=== PATIENT | female | born 1985 | race Caucasian/White ===

== ENCOUNTER 2018-07-04 11:57 | Emergency (ER) | payer OTHER ==
[~2018-07-04] VITALS: Ht 172.7 cm; Wt 108.9 kg
[~2018-07-04 11:57] MED LIST: CIPR500 PO; IBUP600 PO; IBUP800 PO; PROM25 PO
[2018-07-04] MEDS ORDERED: DIPH50 PO (12:36)
[2018-07-04] MEDS ORDERED: CETI5 PO (13:11)
[2018-07-04] MEDS ORDERED: ALBU90OI INH (13:11)
== END 2018-07-04 13:29 | disposition home or self-care (01) ==
LOC: ER 11:57
DX: L50.9 Urticaria, unspecified (principal); R06.2 Wheezing; F17.200 Nicotine dependence, unspecified, uncomplicated
CPT/HCPCS: 96372; 99282; J3301

== ENCOUNTER 2018-07-19 14:44 | Emergency (ER) | payer OTHER ==
[~2018-07-19] VITALS: Ht 172.7 cm; Wt 104.3 kg
[~2018-07-19 14:44] MED LIST changes: +ALBU90OI INH; +CETI5 PO; +DIPH50 PO
[2018-07-19 16:12] LABS: BASOPHILS ABSOLUTE AUTO 0.07 K/mm3 (0.00-0.23); BASOPHILS PERCENT AUTO 1 % (0-2); EOSINOPHILS ABSOLUTE AUTO 0.33 K/mm3 (0.00-0.68); EOSINOPHILS PERCENT AUTO 3 % (0-6); Hematocrit 43.8 % (33.0-51.0); Hemoglobin 14.7 g/dL (11.5-16.0); IMMATURE GRAN ABSOLUTE AUTO 0.03 K/mm3 (0.00-0.10); IMMATURE GRAN PERCENT AUTO 0 % (0-1); LYMPHOCYTES ABSOLUTE AUTO 2.94 K/mm3 (0.84-5.20); LYMPHOCYTES PERCENT AUTO 25 % (21-46); MONOCYTES ABSOLUTE AUTO 0.89 K/mm3 (0.16-1.47); MONOCYTES PERCENT AUTO 8 % (4-13); Mean Corpuscular HGB 30.8 pg (26.0-34.0); Mean Corpuscular HGB Conc 33.6 g/dL (31.5-36.5); Mean Corpuscular Volume 92 fL (80-100); Mean Platelet Volume 9.2 fL (9.1-12.4); NEUTROPHILS ABSOLUTE AUTO 7.33 K/mm3 (1.96-9.15); NEUTROPHILS PERCENT AUTO 63 % (41-73); Platelet Count 430 K/mm3 (150-400); RDW Coefficient Variation 13.3 % (11.7-14.2); RDW Standard Deviation 45.3 fL (35.1-46.3); Red Blood Cell Count 4.78 M/mm3 (3.80-5.20); White Blood Cell Count 11.59 K/mm3 (4.00-11.30)
[2018-07-19 16:40] LABS: Alanine Aminotransfer (ALT/SGP 27 U/L (12-78); Albumin, Blood 4.1 g/dL (3.4-5.0); Albumin/Globulin Ratio 1.1 (0.8-1.8); Alk Phos 74 U/L (50-136); Anion Gap 8 mmol/L (6-16); Aspartate Aminotrans (AST/SGOT 17 U/L (12-37); Bilirubin, Total 0.9 mg/dL (0.1-1.0); Blood Urea Nitrogen 11 mg/dL (8-24); CO2, Blood 22 mmol/L (21-32); Calcium, Blood 8.8 mg/dL (8.5-10.1); Chloride, Blood 108 mmol/L (98-108); Creatinine, Blood 0.85 mg/dL (0.40-1.00); Globulin, Blood 3.9 g/dL (2.2-4.0); Glomerular Filtration Rate >60 (60-); Glucose, Blood 81 mg/dL (70-99); Potassium, Blood 4.1 mmol/L (3.5-5.5); Sodium, Blood 138 mmol/L (136-145)
[2018-07-19] MEDS ORDERED: Zithromax250 MG PO (17:01)
[2018-07-19] MEDS ORDERED: Prednisone20 MG PO (17:01)
== END 2018-07-19 17:12 | disposition home or self-care (01) ==
LOC: ER 14:44
PROVIDERS: Physician Assistant
DX: J45.901 Unspecified asthma with (acute) exacerbation (principal); J18.9 Pneumonia, unspecified organism; F17.200 Nicotine dependence, unspecified, uncomplicated
CPT/HCPCS: 36415; 71046; 80053; 84443; 85025; 94640; 96374; 99284-25; J2930

== ENCOUNTER 2022-04-05 08:01 | Emergency (ER) | payer OTHER ==
[~2022-04-05] VITALS: Ht 172.7 cm; Wt 81.7 kg
[~2022-04-05 08:01] MED LIST changes: +Prednisone20 MG PO; +Zithromax250 MG PO
[2022-04-05] MEDS ORDERED: Amoxicillin500 MG PO (09:02)
== END 2022-04-05 09:11 | disposition home or self-care (01) ==
LOC: ER 08:01
DX: K04.7 Periapical abscess without sinus (principal); F17.200 Nicotine dependence, unspecified, uncomplicated; Z79.899 Other long term (current) drug therapy
CPT/HCPCS: 99282

== ENCOUNTER → 2022-12-22 | Outpatient (CLI) | payer OTHER ==
[~2022-12-22] MED LIST changes: +Amoxicillin500 MG PO
== END | disposition home or self-care (01) ==
LOC: LAB SHORT 15:43 → LAB 15:43
DX: O09.512 Supervision of elderly primigravida, second trimester (principal)
CPT/HCPCS: 87081; 87150

== ENCOUNTER 2023-01-05 05:25 | Inpatient (IN) | payer OTHER ==
[~2023-01-05] VITALS: Ht 172.7 cm; Wt 119.0 kg
[2023-01-05 06:24] LABS: BASOPHILS ABSOLUTE AUTO 0.08 K/mm3 (0.00-0.23); BASOPHILS PERCENT AUTO 1 % (0-2); EOSINOPHILS ABSOLUTE AUTO 0.11 K/mm3 (0.00-0.68); EOSINOPHILS PERCENT AUTO 1 % (0-6); Hematocrit 33.9 % (33.0-51.0); Hemoglobin 11.4 g/dL (11.5-16.0); IMMATURE GRAN ABSOLUTE AUTO 0.07 K/mm3 (0.00-0.10); IMMATURE GRAN PERCENT AUTO 1 % (0-1); LYMPHOCYTES ABSOLUTE AUTO 3.14 K/mm3 (0.84-5.20); LYMPHOCYTES PERCENT AUTO 22 % (21-46); MONOCYTES ABSOLUTE AUTO 0.91 K/mm3 (0.16-1.47); MONOCYTES PERCENT AUTO 6 % (4-13); Mean Corpuscular HGB 29.6 pg (26.0-34.0); Mean Corpuscular HGB Conc 33.6 g/dL (31.5-36.5); Mean Corpuscular Volume 88 fL (80-100); Mean Platelet Volume 10.1 fL (9.1-12.4); NEUTROPHILS PERCENT AUTO 70 % (41-73); Platelet Count 607 K/mm3 (150-400); RDW Coefficient Variation 13.5 % (11.7-14.2); RDW Standard Deviation 43.3 fL (35.1-46.3); Red Blood Cell Count 3.85 M/mm3 (3.80-5.20); White Blood Cell Count 14.41 K/mm3 (4.00-11.30)
[2023-01-05 08:43] LABS: PCO2 Cord - Arterial 47.1 mmHg (40-50); pH Cord - Arterial 7.25 (7.28-7.35)
[2023-01-05 08:46] LABS: PO2 Cord - Venous < 28 mmHg (28-32); pH Umbilical Cord - Venous 7.23 (7.26-7.35)
--- NOTE | 2023-01-05 11:24 | NUR ---
01/05/23 1124 Anaya Hensley MALE BORN AT 0804 VIA PRIMARY C/SECTION. CORD GASSES WERE ORDERED BY DR. MUNSON. CORD SEGMENT GIVEN TO RT TOÑO. APGARS WERE 4//9. BABY WENT TO [facility] FOR CPAP. WT WAS 9-5, 21 IN LONG. CORD BLOOD WAS COLLECTED AND THE SAMPLE WAS GIVEN TO LEIF HOFFMAN.
--- NOTE | 2023-01-05 13:00 | NUR ---
UP TO NURSERY TO SEE BABY VIA WHEELCHAIR
--- NOTE | 2023-01-05 14:34 | NUR ---
PT UP TO WHEELCHAIR AND TO NURSERY TO BREASTFEED BABY
[2023-01-06 09:39] LABS: BASOPHILS PERCENT AUTO 1 % (0-2); EOSINOPHILS ABSOLUTE AUTO 0.17 K/mm3 (0.00-0.68); EOSINOPHILS PERCENT AUTO 1 % (0-6); Hematocrit 32.7 % (33.0-51.0); Hemoglobin 10.7 g/dL (11.5-16.0); IMMATURE GRAN ABSOLUTE AUTO 0.07 K/mm3 (0.00-0.10); IMMATURE GRAN PERCENT AUTO 0 % (0-1); LYMPHOCYTES ABSOLUTE AUTO 2.26 K/mm3 (0.84-5.20); LYMPHOCYTES PERCENT AUTO 14 % (21-46); MONOCYTES ABSOLUTE AUTO 1.08 K/mm3 (0.16-1.47); MONOCYTES PERCENT AUTO 6 % (4-13); Mean Corpuscular HGB 29.2 pg (26.0-34.0); Mean Corpuscular HGB Conc 32.7 g/dL (31.5-36.5); Mean Corpuscular Volume 89 fL (80-100); Mean Platelet Volume 9.8 fL (9.1-12.4); NEUTROPHILS PERCENT AUTO 78 % (41-73); Platelet Count 566 K/mm3 (150-400); RDW Coefficient Variation 13.3 % (11.7-14.2); RDW Standard Deviation 44.2 fL (35.1-46.3); Red Blood Cell Count 3.66 M/mm3 (3.80-5.20); White Blood Cell Count 16.78 K/mm3 (4.00-11.30)
[2023-01-06] MEDS ORDERED: IBUP800 PO (12:29)
[2023-01-06] MEDS ORDERED: Masophen500 MG PO (12:29)
[2023-01-06] MEDS ORDERED: PRENATAL TABLE1 EAC2 PO (12:30)
[2023-01-06] MEDS ORDERED: DOCU100 PO (12:30)
[2023-01-06] MEDS ORDERED: OXAYDO5 M1 PO (12:31)
[2023-01-06] MEDS ORDERED: MIRALAX17 GM PO (12:32)
--- NOTE | 2023-01-07 08:00 | NUR ---
amb to cafeteria. reports doing well, wants to go home as soon as she can this morning
--- NOTE | 2023-01-07 11:55 | NUR ---
DC HOME, AMBULATE OUT, SCRIPT WAS SENT TO [facility] BY DR MUNSON ELECTRONICALLY, DC INSTRUCTINS GONE OVER WITH PT, DENIES ANY QUESTIONS, ENCOURAGED TO CALL IF HAS ANY.
== END 2023-01-07 11:55 | disposition home or self-care (01) | DRG 784 ==
LOC: BC 05:25
PROVIDERS: ADMIT Obstetrics & Gynecology
PROC: 10D00Z1 Extraction of Products of Conception, Low, Open Approach (ICD-10-PCS; principal; 2023-01-05 07:30)
PROC: 0UB70ZZ Excision of Bilateral Fallopian Tubes, Open Approach (ICD-10-PCS; 2023-01-05 07:30)
DX: O24.425 Gestational diabetes mellitus in childbirth, controlled by oral hypoglycemic drugs (principal); O99.324 Drug use complicating childbirth; O36.63X0 Maternal care for excessive fetal growth, third trimester, not applicable or unspecified; O69.1XX0 Labor and delivery complicated by cord around neck, with compression, not applicable or unspecified; O99.52 Diseases of the respiratory system complicating childbirth; J45.909 Unspecified asthma, uncomplicated; O99.214 Obesity complicating childbirth; O99.334 Smoking (tobacco) complicating childbirth; Z37.0 Single live birth; F17.210 Nicotine dependence, cigarettes, uncomplicated; F12.10 Cannabis abuse, uncomplicated; Z3A.38 38 weeks gestation of pregnancy; Z30.2 Encounter for sterilization; Z79.51 Long term (current) use of inhaled steroids; Z79.82 Long term (current) use of aspirin; Z79.84 Long term (current) use of oral hypoglycemic drugs; Z79.899 Other long term (current) drug therapy
CPT/HCPCS: 36415; 82803; 82947; 85025; 86850; 86900; 86901; 88302; A9270; J0690; J1885; J2370; J2405; J2704; J2765; J3010; J7120